=== PATIENT | female | born 1945 | race Caucasian/White ===

== ENCOUNTER → 2019-11-29 10:43 | Outpatient (CLI) | payer MEDICARE, BC, SELFPAY ==
[2019-08-18 10:19] VITALS: BMI 25.5
[2019-11-29 11:00] VITALS: PULSE 72; PULSE 78; PULSE 81; PULSE 84; PULSE 92; PULSE 94; O2SAT 85; O2SAT 89; O2SAT 90; O2SAT 93; O2SAT 96; O2SAT 98
--- NOTE | 2019-11-29 12:14 | CPS ---
Pt qualified for home O2. At the 4 minute hebert pt desatuated to 85% 2L O2 was added at this time. Pt finished test on 2L without desaturations. Pt had multiple questions about different sizes of tanks and originally declined to take E tank home. This RT answered all questions convinced pt to accept home O2. Dr Brewer aware of pt concerns. [facility] was called to arrange home O2 setup before pt left the hospital. Pt could not stay in hospital until [facility] could arrive but did agree to meet [facility] at home for setup. Pt aware of risks involved with not wearing O2 for transport to home. Ac Ac NP stated she would fax order to [facility] and all appropriate paper work faxed to [facility] by RT. Fabian Franklin, [employer] MACHINE OPERATOR-SDS
--- NOTE | 2019-11-29 15:14 | PCM.PSN.6M ---
PSN 6 Minute Walk Test - 6 Minute Walk Test 6 Minute Walk Test: 6 Minute Walk Test PSN:6-Minute Walk Test Start: 11/29/19 12:08 Freq: Status: Active Protocol: [id number].[id number] Document 11/29/19 11:00 [facility] (Rec: 11/29/19 12:20 [facility] [id number]) 6 Minute Walk Test Date Performed 11/29/19 Time Performed 11:00 Height 5 ft Weight: 61.235 kg Weight in Pounds 135.[address]: Medhat Brewer Assistive device used: Walker Pre-test Oxygen Delivery Method Room Air Pulse Ox (%) 93 Pulse Rate (60-100 beats/min) 84 Dyspnea Umberto Scale (0-10) 0 Exertion Umberto Scale (6-20) 6 1st minute Oxygen Delivery Method Room Air Pulse Ox (%) 90 Pulse Rate (60-100 beats/min) 72 2nd minute Oxygen Delivery Method Room Air Pulse Ox (%) 89 Pulse Rate (60-100 beats/min) 94 3rd minute Oxygen Delivery Method Room Air Pulse Ox (%) 89 Pulse Rate (60-100 beats/min) 92 4th minute Oxygen Delivery Method Room Air Pulse Ox (%) 85 Pulse Rate (60-100 beats/min) 92 Dyspnea Umberto Scale (0-10) 0 Exertion Umberto Scale (6-20) 11 5th minute Oxygen Flow Rate (L/min) (L/min) 2 Oxygen Delivery Method Nasal Cannula Pulse Ox (%) 98 Pulse Rate (60-100 beats/min) 78 6th minute Oxygen Flow Rate (L/min) (L/min) 2 Oxygen Delivery Method Nasal Cannula Pulse Ox (%) 96 Pulse Rate (60-100 beats/min) 81 Dyspnea Umberto Scale (0-10) 0 Exertion Umberto Scale (6-20) 11 Post-test Oxygen Flow Rate (L/min) (L/min) 2 Oxygen Delivery Method Nasal Cannula Pulse Ox (%) 96 Pulse Rate (60-100 beats/min) 78 Full Laps Walked 13 Partial Lap, Number of Tiles Walked 0 Total Distance Walked (ft) 767 11/29/19 12:14 [facility] by Rose Reyes Pt qualified for home O2. At the 4 minute hebert pt desatuated to 85% 2L O2 was added at this time. Pt finished test on 2L without desaturations. Pt had multiple questions about different sizes of tanks and originally declined to take E tank home. This RT answered all questions convinced pt to accept home O2. Dr Brewer aware of pt concerns. [facility] [place] home O2 setup before pt left the hospital. [facility] but did agree to meet [facility] at home for setup. Pt aware of risks involved with not wearing O2 for transport to home. Ac Ac NP stated she would fax order to [facility] and all appropriate paper work faxed to [facility] by RT. Fabian Franklin, PAPER TUBE CUTTER-SDS Initialized on 11/29/19 12:14 - END OF NOTE - Interpretation Interpretation: The patient was noted to be 93% on room air. However, after walking for 4 minutes with the assistance of a walker, patient desaturated to 85%. Patient was placed on 2 L nasal cannula with improvement in saturations. In total, the patient traveled 767 feet. These findings are consistent with a respiratory limitation to exercise tolerance. - Recommendations Recommendations: The patient requires no supplemental oxygen at rest, but should be using 2 L nasal cannula with any exertion.
== END ==
PROVIDERS: PCP Nurse Practitioner Family; Referring Provider Internal Medicine Critical Care Medicine; Visit Provider Internal Medicine Critical Care Medicine
DX: J44.9 Chronic obstructive pulmonary disease, unspecified (principal); Z72.0 Tobacco use
CPT/HCPCS: 94618